=== PATIENT | male | born 1955 | race Caucasian/White ===

== ENCOUNTER → 2017-02-07 | Outpatient (CLI) | payer OTHER ==
[~2017-02-07] MED LIST: VICODIN 5/500 T1 TAB PO
--- NOTE | ~2017-02-07 | CT57 ---
[facility]. [facility] A Service of [facility] & [facility] RADIOLOGY TEXT RESULTS PATIENT: JANET PENNY LOCATION: [facility] : 55 UNIT #: [id number] AGE: [address]: CHAYA KAUR MD (INT MED) SEX: M ORDER DR: [id number] [address] [address] [id number] O MR#: [id number] Acc #: [id number] NAME: JANET PENNY : 1955 SEX: M STUDY DATE/TIME: 02/07/2017 8:26 UNIT: [facility] ROOM: STUDY DESCRIPTION: CT Chest Wo Cont Attending Physician: Chaya Kaur M.D. Referring Physician: Chaya Kaur M.D. Ordering Physician: Chaya Kaur M.D. Primary Care Physician: Ganesh Novak Jr., M.D. MEDICAL IMAGING REPORT This report is preliminary unless electronic signature is present. EXAM CT chest without contrast HISTORY Ascending aortic aneurysm on outside CT 02/14/2016. Currently asymptomatic. Left lower lobe pulmonary nodule on outside CT. TECHNIQUE This CT exam was performed with one or more of the following radiation dose reduction techniques: automatic exposure control, adjustment of mA and/or kV according to patient size, and iterative reconstruction. FINDINGS CT chest without contrast demonstrates fusiform aneurysmal dilatation of the ascending thoracic aorta measuring 4.4 cm in maximal dimension, stable compared to 02/14/2016. The aortic arch and descending thoracic aorta are normal in caliber. No adenopathy. 3 mm calcified granuloma in the superior segment left lower lobe is incidentally noted. Stable severe emphysema in the upper lobes and linear fibrotic scarring in the lung apices and stable mild emphysema in the mid- and lower lungs. No airspace infiltrates. No effusions. Small incidental cyst in the inferior tip of the right hepatic lobe measuring 2 cm, and incidental cyst in the upper pole of the left kidney measuring 4.5 cm. IMPRESSION 1. Stable aneurysmal dilatation of the ascending thoracic aorta measuring 4.4 cm, unchanged compared to outside CT 02/14/2016. 2. 3 mm calcified granuloma in the superior segment left lower lobe is incidentally noted. 3. Severe emphysema in the bilateral upper lobes with associated linear fibrotic scarring and [id number] emphysema in the mid- and lower lungs. No airspace infiltrates or effusions or STS. [facility] A Service of [facility] & [facility] RADIOLOGY TEXT RESULTS PATIENT: JANET PENNY LOCATION: [facility] : 55 UNIT #: [id number] AGE: [address]: CHAYA KAUR MD (INT MED) SEX: M ORDER DR: adenopathy. Dictated by... Magno Calvillo M.D. THIS IS AN ELECTRONICALLY VERIFIED REPORT Magno Calvillo M.D. at 02/07/2017 10:39 PM DFL/pcl TD: 02/07/2017 20:52 JOB #: [id number] MEDICAL IMAGING REPORT Page 1 of 1
== END | disposition home or self-care (01) ==
LOC: SCT 08:12
DX: R93.8 Abnormal findings on diagnostic imaging of other specified body structures (principal); I71.2 Thoracic aortic aneurysm, without rupture; J43.9 Emphysema, unspecified; J98.4 Other disorders of lung
CPT/HCPCS: 71250